=== PATIENT | female | born 1995 | race Caucasian/White ===

== ENCOUNTER 2018-04-22 01:14 | Emergency (ER) | payer BC ==
--- NOTE | 2018-04-22 02:13 | ED ---
Throat Pain/Nasal Congestion - HPI Summary HPI Summary: This patient is a 23 year old F presenting to [facility] with a chief complaint of right lower dental pain for the past couple days worsening in the past few hours. She states she recently broke a tooth in the painful area. Denies fever and chills. - History of Current Complaint Chief Complaint: EDDentalPain Time Seen by Provider: 04/22/18 02:06 Hx Obtained From: Patient Onset/Duration: Gradual Onset, Lasting Days Associated Signs And Symptoms: Positive: Negative - Allergies/Home Medications Allergies/Adverse Reactions: Allergies Allergy/AdvReac Type Severity Reaction Status Date / Time No Known Allergies Allergy Verified 01/23/17 12:51 PMH/Surg Hx/FS Hx/Imm Hx Respiratory History: Reports: Hx Asthma Sensory History: Denies: Hx Legally Blind Opthamlomology History: Denies: Hx Legally Blind Psychiatric History: Reports: Hx Anxiety, Hx Depression Infectious Disease History: No Infectious Disease History: Denies: Traveled Outside the [place] in Last 30 Days - Family History Known Family History: Positive: Diabetes Negative: Cardiac Disease, Hypertension - Social History Alcohol Use: None Hx Substance Use: No Substance Use Type: Reports: None Hx Tobacco Use: Yes Smoking Status (MU): Former Smoker Review of Systems Negative: Fever, Chills Positive: Dental Pain All Other Systems Reviewed And Are Negative: Yes Physical Exam - Summary Physical Exam Summary: Appearance: Well-appearing, Well-nourished, lying in bed comfortably Skin: Warm, dry, no obvious rash Eyes: sclera anicteric, no conjunctival pallor ENT: mucous membranes moist, pharynx appears normal, Right lower jaw first molar fracture and tender, No pointing at the gum line Neck: Supple, nontender Respiratory: Clear to auscultation, no signs of respiratory distress Cardiovascular: Normal S1, S2. No murmurs. Normal distal pulses in tibial and radial bilaterally. Abdomen: Soft, nontender, normal active bowel sounds present Musculoskeletal: Normal, Strength/ROM Intact Neurological: A&Ox3, awake and alert, mentation is normal, speech is fluent and appropriate Psychiatric: affect is normal, does not appear anxious or depressed Triage Information Reviewed: Yes Vital Signs On Initial Exam: Initial Vitals Temp Pulse Resp BP Pulse Ox 97 F 62 20 109/56 100 04/22/18 01:15 04/22/18 01:15 04/22/18 01:15 04/22/18 01:15 04/22/18 01:15 Vital Signs Reviewed: Yes Diagnostics - Vital Signs Vital Signs Temp Pulse Resp BP Pulse Ox 04/22/18 01:15 97 F 62 20 109/56 100 - Laboratory Lab Statement: Any lab studies that have been ordered have been reviewed, and results considered in the medical decision making process. EENT Course/Dx - Course Course Of Treatment: 23 year old F presenting to [facility] with a chief complaint of right lower dental pain for the past couple days worsening in the past few hours. She states she recently broke a tooth in the painful area. Denies fever and chills.Upon exam right lower jaw has fracture to first molar with tenderness. Patient given Penicllin, Lidocaine, and Marcaine with Epinepherine. Patient is given prescription for penicillin adn is instructed to follow up with a dentist so symptoms do not return. - Diagnoses Provider Diagnoses: Dental abscess Discharge - Sign-Out/Discharge Documenting (check all that apply): Patient Departure - discharge - Discharge Plan Condition: Good Disposition: HOME Prescriptions: Penicillin VK TAB* [Penicillin VK 250 mg Tab*] 500 mg PO QID #40 tab Patient Education Materials: Dental Abscess (ED) Referrals: No Primary Care Phys,NOPCP [Primary Care Provider] - - Billing Disposition and Condition Condition: GOOD Disposition: Home - Attestation Statements Document Initiated by Baljinder: Yes Documenting Scribe: Demi Calvo Provider For Whom Baljinder is Documenting (Include Credential): Jeff Jean-Baptiste MD Scribe Attestation: Demi Del Cid scribed for Jeff Jean-Baptiste MD on 04/22/18 at 1831. Scribe Documentation Reviewed: Yes Provider Attestation: The documentation as recorded by the Demi martines accurately reflects the service I personally performed and the decisions made by me, Jeff Jean-Baptiste MD Status of Scrrivera Document: Viewed
[2018-04-22] MEDS ORDERED: Penicillin VK TAB* 250 MG PO ONE (02:14)
[2018-04-22] MEDS ORDERED: Bupivacaine 0.5% W/EPI SDV* 30 ML VIAL INJ ONE (02:17)
[2018-04-22] MEDS ORDERED: Lidocaine 2% W/EPI 1:100,000* 20 ML MDV INJ ONE (02:17)
[2018-04-22] MEDS ORDERED: Bupivacaine 0.5% W/EPI SDV* 30 ML VIAL ONE (02:20)
[2018-04-22] MEDS ORDERED: Lidocaine 2% EPI 1:200000 MPF*10-20 ML VIAL ONE (02:20)
[2018-04-22 02:37] VITALS: BP 128/76
== END 2018-04-22 02:36 | disposition home or self-care (01) ==
LOC: ED 01:14
DX: K08.89 Other specified disorders of teeth and supporting structures (principal); Z87.891 Personal history of nicotine dependence
CPT/HCPCS: 96374; 99282; A9270-GY